=== PATIENT | female | born 1960 | race Caucasian/White ===

== ENCOUNTER 2016-07-07 12:45 | Emergency (ER) | payer BC ==
--- NOTE | 2016-07-07 13:15 | EDPHY ---
H & P Time Seen by Provider: 07/07/16 12:55 HPI/ROS: Chief complaint. Headache, neck pain HPI. 56-year-old female with unusual headaches twice in the past 2 weeks. Her last was on Friday. She has visual symptoms that she describes as silver and she memory prior to onset of headache. She then develops headache as well as nausea vomiting. She saw her PCP on Friday who ordered an MRI but that is not for another week. The patient has a history of breast cancer with bilateral mastectomy and is concerned about metastatic disease. She says she just does not quite feel right. She is under quite a bit of stress and is very worried about what might be found on the MRI and is concerned about waiting for the week. Denies focal weakness paresthesias. She has had no recent fever upper respiratory infection though may be is concerned that her sinuses are somewhat stuffy. There has not been any recent head injury ROS Constitutional. no fever/chills, no weakness Eyes. Aura prior to headache ENT. no sore throat, no nasal drainage Cardiovascular. no chest pain Respiratory. no shortness of breath, no cough Abdominal. Nausea and vomiting . no problems urinating MS. no calf pain/swelling, no neck/back pain, no joint pain Skin. no rash Lymph. no swollen glands Neuro. Headache Past Medical/Surgical History: Past medical history significant for breast cancer with bilateral mastectomy and right axillary lymph node dissection Social History: , nonsmoker, no alcohol Smoking Status: Never smoked Physical Exam: General Appearance: Alert pleasant well-developed female mild distress vital signs are stable Eyes: Pupils equal and round no pallor or injection. ENT, Mouth: Mucous membranes are moist. Respiratory: There are no retractions, lungs are clear to auscultation. Cardiovascular: Regular rate and rhythm. Gastrointestinal: Abdomen is soft and nontender, no masses, bowel sounds normal. Neurological: Awake and alert, sensory and motor exams grossly normal. Skin: Warm and dry, no rashes. Musculoskeletal: Neck is supple nontender. Extremities symmetrical, full range of motion. Psychiatric: Patient is oriented X 3, there is no agitation. Constitutional: Initial Vital Signs Temperature (C) 36.6 C 07/07/16 12:47 Heart Rate 70 07/07/16 12:47 Respiratory Rate 18 07/07/16 12:47 Blood Pressure 156/95 H 07/07/16 12:47 O2 Sat (%) 97 07/07/16 12:47 O2 Delivery Mode Room Air Allergies/Adverse Reactions: Sulfa (Sulfonamide Antibiotics) Allergy (Verified 11/02/14 18:32) Home Medications: Medication Instructions Recorded LORazepam [Ativan 0.5 mg (RX)] mg PO 11/24/12 Exemestane [Aromasin] 25 mg PO 11/02/14 Leuprolide Acetate [Lupron] 1 mg SQ 11/02/14 Medical Decision Making - Diagnostics Imaging: MRI without and with contrast of the head shows no evidence for CVA or tumor. No evidence for metastatic disease. Normal sinuses Procedures: IV normal saline. Ativan prior to MRI ED Course/Re-evaluation: Re-evaluation 3:45 p.m.--patient is stable. Patient her , and I discussed imaging and lab results. We discussed treatment plan including criteria for return importance of follow-up and further evaluation they expressed understanding and agreement Differential Diagnosis: I considered metastatic disease, brain tumor, CVA. It sounds that the patient is having migraines and she has a normal workup. No evidence for infection - Data Points Laboratory Results: Laboratory Results 07/07/16 13:15 07/07/16 13:30 07/07/16 07/07/16 13:30 13:15 WBC 4.22 10^3/uL 10^3/uL (3.80-9.50) RBC 4.92 10^6/uL 10^6/uL (4.18-5.33) Hgb 14.1 g/dL g/dL (12.6-16.3) Hct 42.0 % % (38.0-47.0) MCV 85.4 fL fL (81.5-99.8) MCH 28.7 pg pg (27.9-34.1) MCHC 33.6 g/dL g/dL (32.4-36.7) RDW 13.0 % % (11.5-15.2) Plt Count 252 10^3/uL 10^3/uL (150-400) MPV 11.3 fL fL (8.7-11.7) Neut % (Auto) 55.3 % % (39.3-74.2) Lymph % (Auto) 37.4 % % (15.0-45.0) Griggs % (Auto) 5.7 % % (4.5-13.0) Eos % (Auto) 0.7 % % (0.6-7.6) Baso % (Auto) 0.7 % % (0.3-1.7) Nucleat RBC Rel Count 0.0 % % (0.0-0.2) Absolute Neuts (auto) 2.33 10^3/uL 10^3/uL (1.70-6.50) Absolute Lymphs (auto) 1.58 10^3/uL 10^3/uL (1.00-3.00) Absolute Monos (auto) 0.24 10^3/uL L 10^3/uL (0.30-0.80) Absolute Eos (auto) 0.03 10^3/uL 10^3/uL (0.03-0.40) Absolute Basos (auto) 0.03 10^3/uL 10^3/uL (0.02-0.10) Absolute Nucleated RBC 0.00 10^3/uL 10^3/uL (0-0.01) Immature Gran % 0.2 % % (0.0-1.1) Immature Gran # 0.01 10^3/uL 10^3/uL (0.00-0.10) Sodium 140 mEq/L mEq/L (134-144) Potassium 4.0 mEq/L mEq/L (3.5-5.2) Chloride 107 mEq/L mEq/L (97-110) Carbon Dioxide 20 mEq/l L mEq/l (22-31) Anion Gap 13 mEq/L mEq/L (8-16) BUN 13 mg/dL mg/dL (7-23) Creatinine 0.6 mg/dL mg/dL (0.6-1.0) Estimated GFR > 60 Glucose 99 mg/dL mg/dL (70-100) Calcium 10.2 mg/dL mg/dL (8.5-10.4) Medications Given: Discontinued Medications Sodium Chloride (Ns) 1,000 mls @ 0 mls/hr IV ONCE ONE PRN Reason: Wide Open Stop: 07/07/16 13:30 Last Admin: 07/07/16 14:14 Dose: 1,000 mls Lorazepam (Ativan) 1 mg PO EDNOW ONE Stop: 03/26/17 13:31 Last Admin: 07/07/16 14:14 Dose: Not Given Lorazepam (Ativan Injection) 1 mg IVP EDNOW ONE Stop: 07/07/16 14:16 Last Admin: 07/07/16 14:15 Dose: 1 mg Departure - Departure Disposition: Home, Routine, Self-Care Clinical Impression: Headache Qualifiers: Headache type: unspecified Headache chronicity pattern: acute headache Intractability: not intractable Qualified Code(s): R51 - Headache Condition: Good Instructions: Migraine Headache (ED) Additional Instructions: Continue Tylenol 1000 mg every 4-6 hours, ibuprofen 600 mg every 6 hours as needed for headache. Return for worsening symptoms. Keep her follow-up appointment with Dr. Zaman at [facility] Referrals: EVIE MCKOY [Other] - As per Instructions
[2016-07-07 13:34] LABS: % IMMATURE GRANULYOCYTES 0.2 % (0.0-1.1); ABSOLUTE IMMATURE GRANULOCYTES 0.01 10^3/uL (0.00-0.10); ADD DIFF? NO; ADD MORPH? NO; ADD SCAN? NO; ATYPICAL LYMPHOCYTE FLAG 10 (0-99); FRAGMENT RBC FLAG 0 (0-99); HEMOGLOBIN 14.1 g/dL (12.6-16.3); LEFT SHIFT FLG 0 (0-99); LIPEMIA HEMOLYSIS FLAG 80 (0-99); MEAN CELL HEMOGLOBIN 28.7 pg (27.9-34.1); MEAN CELL HEMOGLOBIN CONCENTR. 33.6 g/dL (32.4-36.7); MEAN CELL VOLUME 85.4 fL (81.5-99.8); MEAN PLATELET VOLUME 11.3 fL (8.7-11.7); PLATELET CLUMPS FLAG 0 (0-99); PLATELET COUNT 252 10^3/uL (150-400); RED BLOOD CELL COUNT 4.92 10^6/uL (4.18-5.33)
[2016-07-07] MEDS ORDERED: LORazepam 2 MG/ML INJ ONE (13:52)
[2016-07-07 14:05] LABS: ANION GAP 13 mEq/L (8-16); CALCIUM 10.2 mg/dL (8.5-10.4); CARBON DIOXIDE 20 mEq/l (22-31); CHLORIDE 107 mEq/L (97-110); CREATININE 0.6 mg/dL (0.6-1.0); GLOMERULAR FILTRATION RATE > 60; GLUCOSE 99 mg/dL (70-100); SODIUM 140 mEq/L (134-144)
[2016-07-07] MEDS: LORazepam 1 MG TAB PO ONE (14:14)
[2016-07-07] MEDS: NS 1,000 ML IV ONE (14:14)
[2016-07-07] MEDS: LORazepam 2 MG/ML INJ IVP ONE (14:15)
[2016-07-07] MEDS ORDERED: GADOBUTROL 10 ML VIAL IVP ONE (14:28)
[2016-07-07 15:01] VITALS: RESP 12; O2SAT 93
[2016-07-07 16:00] VITALS: BP 114/72; PULSE 72; TEMP 98.2
== END 2016-07-07 16:23 | disposition home or self-care (01) ==
DX: R51 Headache (principal); Z85.3 Personal history of malignant neoplasm of breast
CPT/HCPCS: 96374; A9585; J2060